=== PATIENT | female | born 1995 | race Caucasian/White ===

== ENCOUNTER 2017-03-29 02:05 | Emergency (ER) | payer BC ==
[~2017-03-29] VITALS: Ht 177.8 cm; Wt 72.0 kg
[2017-03-29 02:08] VITALS: BP 123/81; PULSE 104; RESP 18; TEMP 98.2; O2SAT 98
[2017-03-29] MEDS ORDERED: PROCHLORPERAZINE INJ 10 MG/2 ML VIAL IV PUSH ONE (02:30)
[2017-03-29] MEDS ORDERED: SODIUM CHLOR 0.9% 1000 ML INJ 1,000 ML IV ONE (02:30)
--- NOTE | 2017-03-29 02:58 | PD ---
HPI Chief Complaint: Abdominal Pain Time Seen by Provider: 02:25 Travel History International Travel<30 days: No Contact w/Intl Traveler<30days: No Traveled to known affect area: No History of Present Illness HPI This is a 21-year-old female with no past medical history, presents today with complaints of nausea vomiting that started at 10 PM tonight. The patient states she was out and had a ice cream and Coke. She states shortly thereafter she started having severe nausea vomiting. She denies any fevers, chills. She does report diaphoresis with vomiting. There are no ill contacts. She denies any diarrhea. She denies any urinary symptoms. There are no other reported symptoms of time my examination. PFSH Past Medical History Neurologic: Yes (HX BENIGN BRAIN TUMOR) ?: Not LMP: 02/27/17 Past Surgical History Neurologic Surgery: Yes (BRAIN TUMOR REMOVED) Other Surgery: Yes (BILAT THIGH LIPOSUCTION, MASTOPLEXY) Social History Alcohol Use: No Tobacco Use: No Substance Use: No Allergies-Medications (Allergen,Severity, Reaction): Coded Allergies: Sulfa (Sulfonamide Antibiotics) (Verified Adverse Reaction, Mild, Nausea/ Vomiting, 03/29/17) Reported Meds & Prescriptions Reported Meds & Active Scripts Active Zofran (Ondansetron HCl) 4 Mg Tab 4 Mg PO Q8HR PRN Review of Systems Except as stated in HPI: all other systems reviewed are Neg General / Constitutional: No: Fever, Chills HENT: No: Headaches, Neck Stiffness, Neck Pain Cardiovascular: No: Chest Pain or Discomfort, Palpitations Respiratory: No: Cough, Shortness of Breath Gastrointestinal: Positive: Nausea, Vomiting, No: Diarrhea, Abdominal Pain Genitourinary: No: Frequency, Dysuria, Flank Pain Musculoskeletal: No: Weakness, Pain Neurologic: No: Weakness, Dizziness, Headache Physical Exam Narrative GENERAL: Well-nourished, well-developed patient, actively vomiting when I entered the room. SKIN: Focused skin assessment warm/dry. HEAD: Normocephalic/atraumatic. EYES: No scleral icterus. No injection or drainage. NECK: Supple, trachea midline. CARDIOVASCULAR: Regular rate and rhythm without murmurs, gallops, or rubs. RESPIRATORY: Breath sounds equal bilaterally. No accessory muscle use. GASTROINTESTINAL: Abdomen soft, non-tender, nondistended. NEUROLOGICAL: Awake and alert. Cranial nerves II through XII intact. Motor grossly within normal limits. Five out of 5 muscle strength in all muscle groups. Normal speech. Data Data Last Documented VS Vital Signs Date Time Temp Pulse Resp B/P (MAP) Pulse Ox O2 Delivery O2 Flow Rate FiO2 03/29/17 02:08 98.2 104 18 123/81 (95) 98 Room Air Orders Orders Prochlorperazine Inj (Compazine Inj) (03/29/17 02:30) Sodium Chlor 0.9% 1000 Ml Inj (Ns 1000 M (03/29/17 02:30) Complete Blood Count With Diff (03/29/17 02:25) Comprehensive Metabolic Panel (03/29/17 02:25) Lipase (03/29/17 02:25) Urinalysis - C+S If Indicated (03/29/17 02:25) Ondansetron Inj (Zofran Inj) (03/29/17 04:00) Labs Laboratory Tests Test 03/29/17 02:35 03/29/17 02:50 White Blood Count 15.0 TH/MM3 Red Blood Count 4.16 MIL/MM3 Hemoglobin 12.7 GM/DL Hematocrit 37.9 % Mean Corpuscular Volume 91.2 FL Mean Corpuscular Hemoglobin 30.4 PG Mean Corpuscular Hemoglobin Concent 33.4 % Red Cell Distribution Width 15.3 % Platelet Count 334 TH/MM3 Mean Platelet Volume 8.2 FL Neutrophils (%) (Auto) 83.7 % Lymphocytes (%) (Auto) 9.1 % Monocytes (%) (Auto) 6.7 % Eosinophils (%) (Auto) 0.3 % Basophils (%) (Auto) 0.2 % Neutrophils # (Auto) 12.5 TH/MM3 Lymphocytes # (Auto) 1.4 TH/MM3 Monocytes # (Auto) 1.0 TH/MM3 Eosinophils # (Auto) 0.1 TH/MM3 Basophils # (Auto) 0.0 TH/MM3 CBC Comment DIFF FINAL Differential Comment Blood Urea Nitrogen 19 MG/DL Creatinine 0.72 MG/DL Random Glucose 124 MG/DL Total Protein 8.4 GM/DL Albumin 4.0 GM/DL Calcium Level 9.1 MG/DL Alkaline Phosphatase 84 U/L Aspartate Amino Transf (AST/SGOT) 16 U/L Alanine Aminotransferase (ALT/SGPT) 23 U/L Total Bilirubin 0.8 MG/DL Sodium Level 140 MEQ/L Potassium Level 4.0 MEQ/L Chloride Level 107 MEQ/L Carbon Dioxide Level 30.2 MEQ/L Anion Gap 3 MEQ/L Estimat Glomerular Filtration Rate 102 ML/MIN Lipase 109 U/L Urine Color YELLOW Urine Turbidity Slightly Urine pH 7.0 Urine Specific [place] 1.030 Urine Protein 30 mg/dL Urine Glucose (UA) NEG mg/dL Urine Ketones NEG mg/dL Urine Occult Blood NEG Urine Nitrite NEG Urine Bilirubin NEG Urine Urobilinogen 0.2 MG/DL Urine Leukocyte Esterase NEG Urine Squamous Epithelial Cells 0-5 /hpf Urine Amorphous Sediment FEW Microscopic Urinalysis Comment CULT NOT INDICATED MDM Medical Decision Making Medical Screen Exam Complete: Yes Emergency Medical Condition: Yes Differential Diagnosis Foodborne illness versus influenza versus gastroenteritis Narrative Course 21-year-old female presents today with nausea vomiting. The patient denies any suspicious food other than a ice cream Monday and a Coca-Cola. The patient has no fever. White count was elevated however she was actively vomiting. The rest for lateral lites were within normal limits. She's been given Compazine and Zofran with a liter of IVD fluids. She has tolerated both ice and a by mouth challenge. She'll be discharged with a prescription for Zofran. She is instructed to start with the [place] diet including bananas rice applesauce and toast. She is instructed to drink plenty of fluids and advance as tolerated. Diagnosis Primary Impression: Nausea & vomiting Additional Instructions: [place] diet, bananas, rice, applesauce, toast and advance as tolerated. Drink plenty of fluids. Med/Other Pt SpecificInfo: Prescription(s) given Scripts Ondansetron (Zofran) 4 Mg Tab 4 MG PO Q8HR Y for NAUSEA OR VOMITING, #10 TAB 0 Refills Prov: Walter Garner MD 03/29/17 Disposition: 01 DISCHARGE HOME Condition: Stable Walter Garner MD Mar 29, 2017 02:58
[2017-03-29 02:59] LABS: AUTOMATED NEUTROPHIL # 12.5 TH/MM3 (1.8-7.7); BASOPHIL % 0.2 % (0.0-2.0); EOSINOPHIL # 0.1 TH/MM3 (0-0.4); EOSINOPHIL % 0.3 % (0.0-4.0); HEMATOCRIT 37.9 % (35.0-46.0); HEMOGLOBIN 12.7 GM/DL (11.6-15.3); LYMPH % 9.1 % (9.0-44.0); LYMPHOCYTE # 1.4 TH/MM3 (1.0-4.8); MEAN CELL VOLUME 91.2 FL (80.0-100.0); MEAN CORPUSCULAR HEMOGLOBIN 30.4 PG (27.0-34.0); MEAN CORPUSCULAR HGB CONC 33.4 % (32.0-36.0); MEAN PLATELET VOLUME 8.2 FL (7.0-11.0); MONO % 6.7 % (0.0-8.0); NEUT % 83.7 % (16.0-70.0); PLATELET COUNT 334 TH/MM3 (150-450); RED BLOOD COUNT 4.16 MIL/MM3 (4.00-5.30); RED CELL DISTRIBUTION WIDTH 15.3 % (11.6-17.2)
[2017-03-29 03:05] LABS: ALT (GPT) 23 U/L (10-53); AST (GOT) 16 U/L (15-37); BICARBONATE 30.2 MEQ/L (21.0-32.0); BLOOD UREA NITROGEN 19 MG/DL (7-18); CALCIUM 9.1 MG/DL (8.5-10.1); CHLORIDE 107 MEQ/L (98-107); CREATININE 0.72 MG/DL (0.50-1.00); GLOMERULAR FILTRATION RATE 102 ML/MIN (>89); GLUCOSE,RANDOM 124 MG/DL (74-106); LIPASE 109 U/L (73-393); SODIUM (NA) 140 MEQ/L (136-145)
[2017-03-29 03:07] LABS: ALKALINE PHOSPHATASE 84 U/L (45-117); TOTAL BILIRUBIN ADULT 0.8 MG/DL (0.2-1.0); TOTAL PROTEIN 8.4 GM/DL (6.4-8.2)
[2017-03-29 03:10] LABS: BILIRUBIN, URINE NEG (NEG); BLOOD, URINE NEG (NEG); GLUCOSE,URINE NEG (NEG); KETONE, URINE NEG (NEG); NITRITE,URINE NEG (NEG); URINE COLOR YELLOW (YELLW/STRAW); URINE LEUKOCYTE ESTERASE NEG (NEG)
[2017-03-29 03:11] LABS: SQUAMOUS EPITHELIAL CELL URINE 0-5 /hpf (0-5)
[2017-03-29 03:15] LABS: AMORPHOUS SEDIMENT, URINE FEW
[2017-03-29] MEDS ORDERED: ONDANSETRON HCL 4 MG/2 ML VIAL IV PUSH ONE (04:00)
[2017-03-29] MEDS ORDERED: ZOFR4TAB PO (04:24)
== END 2017-03-29 04:55 | disposition home or self-care (01) ==
LOC: NEPC 02:05 → EDBD 02:05 → NEPC 04:55
DX: R11.2 Nausea with vomiting, unspecified (principal); D72.829 Elevated white blood cell count, unspecified; Z98.890 Other specified postprocedural states; Z88.2 Allergy status to sulfonamides
CPT/HCPCS: 80053; 81001; 83690; 85025; 96361; 96374; 96375; 99283; J0780; J2405; J7030